=== PATIENT | male | born 1965 | race African-American/Black ===

== ENCOUNTER 2022-02-14 11:28 | Inpatient (IN) ==
[2022-02-14 12:51] LABS: Basophils % 0.5 % (0.0-0.8); Eosinophils % 0.3 % (0.00-10.9); Hematocrit 38.5 VOL% (42.0-52.0); Hemoglobin 12.4 GM/DL (14.0-18.0); Immature Granulocytes % 0.4 %; Immature Granulocytes Absolute 0.03 #; Lymphocytes # 0.3 10*3/uL (1.4-4.0); Lymphocytes % 4.1 % (21.2-54.2); Mean Corpuscular HGB Conc 32.2 GM/DL (32-36); Mean Corpuscular Volume 90.4 FL (87-102); Mean Platelet Volume 9.8 FL (9.6-12.0); Monocytes # 0.6 10*3/uL (0.11-0.8); Monocytes % 8.4 % (1.7-12.7); Neutrophils % 86.3 % (38.7-73.9); Platelet Count 277 T/CUMM (130-400); Red Blood Count 4.26 MC/CUMM (3.8-5.5); Red Cell Distribution Width 13.7 % (9.3-17.3); White Blood Count 7.6 T/CUMM (4-12)
[2022-02-14 13:11] LABS: Albumin 3.4 G/DL (3.4-5.0); Bilirubin,Total 0.5 MG/DL (0.20-1.00); Calcium 9.6 MG/DL (8.5-10.1); Osmolality,Calculated 279.4 MOS/KG (273-304); Potassium 3.6 MMOL/L (3.5-5.1); Total Protein 8.4 G/DL (6.4-8.2)
[2022-02-14 13:30] LABS: Lymphocytes 5 % (20-55); Total Cells Counted 100
[2022-02-14 13:31] LABS: Platelet Estimate Adequate
[2022-02-14] MEDS ORDERED: DOCUSATE SODIUM 100 MG CAPSULE PO PRN (15:25)
[2022-02-14] MEDS ORDERED: MORPHINE 2 MG/1 ML SYRINGE IV PRN (15:25)
[2022-02-14] MEDS ORDERED: ONDANSETRON 4 MG/2 ML VIAL IV PRN (15:25)
[2022-02-14] MEDS ORDERED: hydrALAZINE 20 MG/1 ML VIAL IV PRN (15:25)
[2022-02-14] MEDS ORDERED: ZALEPLON 5 MG CAPSULE PO PRN (15:25)
[2022-02-14] MEDS ORDERED: DEXTROSE 50% 25 GM/50 ML VIAL IV PRN (15:25)
[2022-02-14] MEDS ORDERED: GLUCAGON 1 MG VIAL IM PRN ×2 (15:25)
[2022-02-14] MEDS ORDERED: DEXTROSE 10% 250 ML BAG IV PRN (15:54)
[2022-02-14] MEDS: PIPERACILLIN/TAZOBACTAM 3,375 MG in SODIUM CHLORIDE 0.9% 100 ML IV SCH (16:38)
[2022-02-14] MEDS: INSULIN LISPRO 100 UNIT/ML SUBCUT SCH (16:51)
[2022-02-14] MEDS ORDERED: SODIUM CHLORIDE 0.9% 1,000 ML IV ONE (17:15)
[2022-02-14] MEDS: SODIUM CHLORIDE 0.9% 1,000 ML IV SCH (18:30)
[2022-02-14] MEDS ORDERED: MYCOPHENOLATE MOFETIL 250 MG CAPSULE PO SCH (21:00)
[2022-02-14] MEDS ORDERED: TACROLIMUS 0.5 MG CAPSULE PO SCH ×2 (21:00)
[2022-02-14] MEDS: ACETAMINOPHEN 325 MG TABLET PO PRN (22:20)
[2022-02-15] MEDS: INSULIN LISPRO 100 UNIT/ML SUBCUT SCH ×5 (00:28→20:37)
[2022-02-15] MEDS: POTASSIUM PHOS/SOD PHOS 250 MG TABLET PO SCH ×3 (00:29→20:38)
[2022-02-15] MEDS: PIPERACILLIN/TAZOBACTAM 3,375 MG in SODIUM CHLORIDE 0.9% 100 ML IV SCH ×5 (01:02→23:37)
[2022-02-15 05:29] LABS: Basophils % 0.3 % (0.0-0.8); Eosinophils % 0.2 % (0.00-10.9); Hematocrit 35.8 VOL% (42.0-52.0); Hemoglobin 11.5 GM/DL (14.0-18.0); Immature Granulocytes % 0.5 %; Immature Granulocytes Absolute 0.03 #; Lymphocytes # 0.4 10*3/uL (1.4-4.0); Lymphocytes % 7.3 % (21.2-54.2); Mean Corpuscular HGB Conc 32.1 GM/DL (32-36); Mean Corpuscular Volume 90.9 FL (87-102); Mean Platelet Volume 9.6 FL (9.6-12.0); Monocytes # 0.6 10*3/uL (0.11-0.8); Monocytes % 9.8 % (1.7-12.7); Neutrophils % 81.9 % (38.7-73.9); Platelet Count 237 T/CUMM (130-400); Red Blood Count 3.94 MC/CUMM (3.8-5.5); Red Cell Distribution Width 13.6 % (9.3-17.3); White Blood Count 5.7 T/CUMM (4-12)
[2022-02-15 05:56] LABS: Calcium 8.9 MG/DL (8.5-10.1); Osmolality,Calculated 274.7 MOS/KG (273-304); Potassium 3.6 MMOL/L (3.5-5.1); Risk Ratio 3.87; Thyroid Stimulating Hormone 3.08 uIU/ml (0.358-3.74); VLDL Cholesterol 16.8 MG/DL
[2022-02-15] MEDS ORDERED: fentaNYL 100 MCG/2 ML VIAL ONE (07:59)
[2022-02-15] MEDS ORDERED: LIDOCAINE 2% 5 ML VIAL ONE (07:59)
[2022-02-15] MEDS ORDERED: propofoL 200 MG/20 ML VIAL IV ONE (07:59)
[2022-02-15] MEDS ORDERED: BUPIVACAINE MPF 0.25% 10 ML VIAL ONE (08:07)
[2022-02-15] MEDS ORDERED: METOCLOPRAMIDE 10 MG/2 ML VIAL ONE (08:36)
[2022-02-15] MEDS ORDERED: TACROLIMUS 0.5 MG PO SCH (09:00)
[2022-02-15] MEDS ORDERED: SEVOFLURANE 1 UNIT/15 MINUTE INH ONE (09:04)
[2022-02-15] MEDS ORDERED: SODIUM CHLORIDE 0.9% 1,000 ML IV ONE (09:04)
[2022-02-15] MEDS ORDERED: ONDANSETRON 4 MG/2 ML VIAL ONE (09:04)
[2022-02-15] MEDS ORDERED: PHENYLEPHRINE 1 MG/10 ML SYRINGE IV ONE (09:04)
[2022-02-15] MEDS: ATORVASTATIN 10 MG TABLET PO SCH (11:14)
[2022-02-15] MEDS: MYCOPHENOLATE 500 MG TABLET PO SCH (11:14)
[2022-02-15] MEDS: ASPIRIN CHEW 81 MG TABLET PO SCH (11:14)
[2022-02-15] MEDS: TACROLIMUS 1 MG PO SCH ×2 (11:15→20:51)
[2022-02-15] MEDS: predniSONE 5 MG TABLET PO SCH (11:15)
[2022-02-15] MEDS: PANTOPRAZOLE 40 MG TABLET PO SCH (11:16)
[2022-02-15] MEDS: ACETAMINOPHEN 325 MG TABLET PO PRN ×2 (18:04→22:13)
[2022-02-15] MEDS: SODIUM CHLORIDE 0.9% 1,000 ML IV SCH (20:50)
[2022-02-15] MEDS: TACROLIMUS 0.5 MG PO SCH (20:51)
[2022-02-15] MEDS ORDERED: MYCOPHENOLATE 500 MG PO SCH (21:00)
[2022-02-15] MEDS ORDERED: ENOXAPARIN 30 MG/0.3 ML SYRINGE SUBCUT SCH (21:00)
[2022-02-16] MEDS: SODIUM CHLORIDE 0.9% 1,000 ML IV SCH ×2 (04:41→09:05)
[2022-02-16 06:26] LABS: Basophils % 0.7 % (0.0-0.8); Hematocrit 35.8 VOL% (42.0-52.0); Hemoglobin 11.3 GM/DL (14.0-18.0); Immature Granulocytes % 0.2 %; Immature Granulocytes Absolute 0.01 #; Lymphocytes # 0.4 10*3/uL (1.4-4.0); Lymphocytes % 9.1 % (21.2-54.2); Mean Corpuscular HGB Conc 31.6 GM/DL (32-36); Mean Corpuscular Volume 90.9 FL (87-102); Mean Platelet Volume 10.1 FL (9.6-12.0); Monocytes # 0.8 10*3/uL (0.11-0.8); Monocytes % 18.8 % (1.7-12.7); Neutrophils % 70.2 % (38.7-73.9); Platelet Count 239 T/CUMM (130-400); Red Blood Count 3.94 MC/CUMM (3.8-5.5); Red Cell Distribution Width 13.8 % (9.3-17.3); White Blood Count 4.2 T/CUMM (4-12)
[2022-02-16 06:47] LABS: Calcium 8.7 MG/DL (8.5-10.1); Osmolality,Calculated 277.7 MOS/KG (273-304); Potassium 3.7 MMOL/L (3.5-5.1)
[2022-02-16 06:51] LABS: Lymphocytes 10 % (20-55); Total Cells Counted 100
[2022-02-16 06:52] LABS: Platelet Estimate Normal
[2022-02-16] MEDS: INSULIN LISPRO 100 UNIT/ML SUBCUT SCH ×2 (09:05→11:59)
[2022-02-16] MEDS: PIPERACILLIN/TAZOBACTAM 3,375 MG in SODIUM CHLORIDE 0.9% 100 ML IV SCH (09:07)
[2022-02-16] MEDS: ASPIRIN CHEW 81 MG TABLET PO SCH (09:47)
[2022-02-16] MEDS: POTASSIUM PHOS/SOD PHOS 250 MG TABLET PO SCH (09:47)
[2022-02-16] MEDS: ATORVASTATIN 10 MG TABLET PO SCH (09:47)
[2022-02-16] MEDS: MYCOPHENOLATE 500 MG TABLET PO SCH (09:48)
[2022-02-16] MEDS: TACROLIMUS 0.5 MG PO SCH (09:48)
[2022-02-16] MEDS: TACROLIMUS 1 MG PO SCH (09:48)
[2022-02-16] MEDS: PANTOPRAZOLE 40 MG TABLET PO SCH (09:49)
[2022-02-16] MEDS: predniSONE 5 MG TABLET PO SCH (09:49)
[2022-02-16 11:41] VITALS: BP 129/69
== END 2022-02-16 14:15 | disposition home health service (06) | DRG 617 ==
LOC: N.ED 11:28 → SUATTDRO 15:25 → N.3E 15:25
PROVIDERS: ADMIT Internal Medicine; ATTEND Emergency Medicine